=== PATIENT | male | born 1960 | race Two or more races ===

== ENCOUNTER 2022-06-16 17:17 | Emergency (ER) | payer OTHER ==
[~2022-06-16] VITALS: Ht 180.3 cm; Wt 93.0 kg
[2022-06-16] MEDS ORDERED: ZESTRIL10 M1 (17:48)
[2022-06-16] MEDS ORDERED: TAMS0.4C (17:48)
[2022-06-16] MEDS ORDERED: LIPITOR20 MG (17:48)
[2022-06-16] MEDS ORDERED: XARELTO10 MG (17:48)
== END 2022-06-16 20:08 | disposition home or self-care (01) ==
LOC: ER 17:17
DX: U07.1 COVID-19 (principal)